=== PATIENT | male | born 1955 | race Caucasian/White ===

== ENCOUNTER 2019-03-12 17:31 | Emergency (ER) | payer OTHER ==
[2019-03-12 18:24] LABS: Absolute Lymphocytes (CBC) 1.5 K/uL (0.7-4.9); Basophils % 0.5 % (0-1.3); Hematocrit 42.9 % (39.6-49.0); MPV 7.4 fL (7.6-11.3); RBC Red Blood Cell Count 4.59 M/uL (4.33-5.43)
[2019-03-12 18:38] LABS: Bilirubin Direct 0.3 mg/dL (0-0.2); Bilirubin Total 2.5 mg/dL (0.2-1.0); Potassium 3.9 mmol/L (3.5-5.1); Protein, Total 7.4 g/dL (6.4-8.2)
[2019-03-12] MEDS ORDERED: NA CHLORIDE 0.9% 1,000 ML ONE (19:24)
--- NOTE | 2019-03-12 19:28 | RAD REPORT ---
EXAM DESCRIPTION: CTAbdomen Pelvis W Contrast - 03/12/2019 7:16 pm CLINICAL HISTORY: Abdominal pain. bloody diarrhea COMPARISON: <Comparisons> TECHNIQUE: Biphasic CT imaging of the abdomen and pelvis was performed with 100 ml non-ionic IV cont rast. All CT scans are performed using dose optimization technique as appropriate and may include automated exposure control or mA/KV adjustment according to patient size. FINDINGS: The lung bases are clear. The liver, spleen, pancreas, adrenal glands and kidneys are within normal limits. No bowel obstruction, free air, free fluid or abscess. Moderate inflammation is seen involving the de scending colon compatible with a moderate colitis. No pneumatosis. The appendix is normal. No eviden ce of significant lymphadenopathy. No suspicious bony findings. IMPRESSION: Moderate descending colon colitis. No pneumatosis.
[2019-03-12] MEDS ORDERED: metroNIDAZOLE 500 MG TABLET ONE (20:46)
[2019-03-12] MEDS ORDERED: CIPROFLOXACIN HCL 500 MG TAB ONE (20:47)
--- NOTE | 2019-03-12 20:47 | EDPHYS ---
Physician Documentation [facility] Name: Boris Bush Age: 63 yrs Sex: Male : 1955 Arrival Date: 03/12/2019 Time: 17:36 Bed 24 Private MD: ED Physician Mingo Ashley HPI: 03/12 18:10 This 63 yrs old Male presents to ER via Ambulatory with complaints of Rectal jmm Bleeding. 18:10 The patient presents to the emergency department with bleeding from the rectum/anus. jmm Onset: The symptoms/episode began/occurred acutely, this morning. Modifying factors: The symptoms are alleviated by nothing, The symptoms are aggravated by bowel movement. This is a 63 year old female with a history of hlp, htn that presents to the ED with complaints of diarrhea and bloody stools. Patient denies fever. Patient states eating pork the previous evening. Patient denies recent, travel, denies recent antibiotic use. . Historical: - Allergies: 17:47 No Known Allergies; hb - Home Meds: 17:47 pravastatin 20 mg Oral tab 1 tab once daily [Active]; hb - PMHx: 17:47 GERD; Hyperlipidemia; Hypertension; hb - PSHx: 17:47 right arm surg; TURP; back surg; left shoulder surg; hb - Immunization history:: Adult Immunizations up to date. - Social history:: Smoking status: Patient/guardian denies using tobacco. - Ebola Screening: : No symptoms or risks identified at this time. ROS: 18:10 Constitutional: Negative for fever, chills, and weight loss, Cardiovascular: Negative jmm for chest pain, palpitations, and edema, Respiratory: Negative for shortness of breath, cough, wheezing, and pleuritic chest pain. 18:10 Abdomen/GI: Positive for abdominal pain, diarrhea. 18:10 All other systems are negative. Exam: 18:10 Constitutional: This is a well developed, well nourished patient who is awake, alert, jmm and in no acute distress. Head/Face: atraumatic. Eyes: EOMI, no conjunctival erythema appreciated ENT: Moist Mucus Membranes Neck: Trachea midline, Supple Chest/axilla: Normal chest wall appearance and motion. Cardiovascular: Regular rate and rhythm. No edema appreciated Respiratory: Normal respirations, no respiratory distress appreciated 18:10 Back: Normal ROM Skin: General appearance color normal MS/ Extremity: Moves all extremities, no obvious deformities appreciated, no edema noted to the lower extremities Neuro: Awake and alert, normal gait Psych: Behavior is normal, Mood is normal, Patient is cooperative and pleasant 18:10 Abdomen/GI: Inspection: abdomen appears normal, Bowel sounds: normal, Palpation: abdomen is soft and non-tender. Vital Signs: 17:46 BP 147 / 85; Pulse 78; Resp 16; Temp 98.8; Pulse Ox 99% on R/A; Weight 72.57 kg; Height hb 5 ft. 9 in. (175.26 cm); Pain 8/10; 19:32 BP 167 / 86; Pulse 60; Resp 18; Pulse Ox 100% on R/A; mg2 20:33 BP 169 / 82; Pulse 65; Resp 18; Temp 98.8(O); Pulse Ox 100% on R/A; mg2 17:46 Body Mass Index 23.63 (72.57 kg, 175.26 cm) hb MDM: 18:10 Patient medically screened. [facility] 20:24 Data reviewed: vital signs. [facility] 20:45 Data reviewed: lab test result(s). Counseling: I had a detailed discussion with the [facility] patient and/or guardian regarding: the historical points, exam findings, and any diagnostic results supporting the discharge/admit diagnosis, lab results, radiology results, the need for outpatient follow up, to return to the emergency department if symptoms worsen or persist or if there are any questions or concerns that arise at home. ED course: Patient is alert and non toxic in appearance in the ED. I discussed with the patient the need to follow up with pcp. Patient is otherwise given strict return precautions. Patient understood and agrees with the plan of care. . 03/12 17:53 Order name: Basic Metabolic Panel; Complete Time: 18:43 mg2 03/12 17:53 Order name: CBC with Diff; Complete Time: 18:43 mg2 03/12 17:53 Order name: Creatinine for Radiology; Complete Time: 18:43 mg2 03/12 17:53 Order name: Hepatic Function; Complete Time: 18:43 mg2 03/12 17:53 Order name: Lipase; Complete Time: 18:43 mg2 03/12 17:54 Order name: TS; Complete Time: 19:48 mg2 03/12 17:53 Order name: IV Saline Lock; Complete Time: 18:06 [facility] 03/12 17:53 Order name: Labs collected and sent; Complete Time: 18:06 [facility] 03/12 18:21 Order name: Stool Culture [facility] 03/12 18:21 Order name: CT Abd/Pelvis - IV Contrast Only; Complete Time: 19:35 [facility] Administered Medications: 19:29 Drug: NS 0.9% 1000 ml Route: IV; Rate: 1 bolus; Site: left antecubital; mg2 21:17 Follow up: Response: No adverse reaction; IV Status: Completed infusion; IV Intake: mg2 1000ml 20:36 Drug: Cipro 500 mg Route: PO; mg2 21:17 Follow up: Response: No adverse reaction; Medication administered at discharge. mg2 20:36 Drug: Flagyl 500 mg Route: PO; mg2 21:17 Follow up: Response: No adverse reaction; Marked relief of symptoms mg2 Disposition: 03/12/19 20:46 Discharged to Home. Impression: Colitis. - Condition is Stable. - Discharge Instructions: Colitis. - Prescriptions for Bentyl 20 mg Oral Tablet - take 2 tablet by ORAL route every 6 hours As needed; 40 tablet. Flagyl 500 mg Oral Tablet - take 1 tablet by ORAL route every 6 hours for 10 days; 40 tablet. Cipro 500 mg Oral Tablet - take 1 tablet by ORAL route every 12 hours for 7 days; 20 tablet. - Medication Reconciliation Form, Thank You Letter, Antibiotic Education, Prescription Opioid Use form. - Follow up: Private Physician; When: 2 - 3 days; Reason: Recheck today's complaints, Continuance of care, Re-evaluation by your physician. Signatures: Dispatcher [employer] EDNC Khalif Johnson PA PA jmm Baxter, Heather, CAMERON RN Rasta Henderson RN RN mg2 Corrections: (The following items were deleted from the chart) 21:16 20:46 03/12/2019 20:46 Discharged to Home. Impression: Colitis. Condition is Stable. mg2 Forms are Medication Reconciliation Form, Thank You Letter, Antibiotic Education, Prescription Opioid Use. Follow up: Private Physician; When: 2 - 3 days; Reason: Recheck today's complaints, Continuance of care, Re-evaluation by your physician. sveta
--- NOTE | 2019-03-12 20:47 | ER ---
Nurse's Notes [facility] Name: Boris Bush Age: 63 yrs Sex: Male : 1955 Arrival Date: 03/12/2019 Time: 17:36 Bed 24 Private MD: Diagnosis: Colitis Presentation: 03/12 17:45 Presenting complaint: Abdominal pain and bright red bloody diarrhea since last night. hb Transition of care: patient was not received from another setting of care. Onset of symptoms was March 11, 2019. Risk Assessment: Do you want to hurt yourself or someone else? Patient reports no desire to harm self or others. Initial Sepsis Screen: Does the patient meet any 2 criteria? No. Patient's initial sepsis screen is negative. Does the patient have a suspected source of infection? No. Patient's initial sepsis screen is negative. Care prior to arrival: None. 17:45 Method Of Arrival: Ambulatory hb 17:45 Acuity: NANCY 3 hb Historical: - Allergies: 17:47 No Known Allergies; hb - Home Meds: 17:47 pravastatin 20 mg Oral tab 1 tab once daily [Active]; hb - PMHx: 17:47 GERD; Hyperlipidemia; Hypertension; hb - PSHx: 17:47 right arm surg; TURP; back surg; left shoulder surg; hb - Immunization history:: Adult Immunizations up to date. - Social history:: Smoking status: Patient/guardian denies using tobacco. - Ebola Screening: : No symptoms or risks identified at this time. Screenin:32 Abuse screen: Denies threats or abuse. Denies injuries from another. Nutritional mg2 screening: No deficits noted. Tuberculosis screening: No symptoms or risk factors identified. Fall Risk IV access (20 points). Assessment: 19:30 General: Appears in no apparent distress. comfortable, Behavior is calm, cooperative. mg2 Pain: Complains of pain in abdomen Pain does not radiate. Pain currently is 3 out of 10 on a pain scale. Quality of pain is described as crampy, Pain began gradually. Neuro: Level of Consciousness is awake, alert, obeys commands, Oriented to person, place, time, situation. Cardiovascular: Capillary refill < 3 seconds Patient's skin is warm and dry. Respiratory: Airway is patent Respiratory effort is even, unlabored, Respiratory pattern is regular, symmetrical. GI: Rectal exam: Bleeding noted. :. EENT: No signs and/or symptoms were reported regarding the EENT system. Derm: Skin is intact, is healthy with good turgor, Skin is pink, warm \T\ dry. normal. Musculoskeletal: Circulation, motion, and sensation intact. Capillary refill < 3 seconds. Vital Signs: 17:46 BP 147 / 85; Pulse 78; Resp 16; Temp 98.8; Pulse Ox 99% on R/A; Weight 72.57 kg; Height hb 5 ft. 9 in. (175.26 cm); Pain 8/10; 19:32 BP 167 / 86; Pulse 60; Resp 18; Pulse Ox 100% on R/A; mg2 20:33 BP 169 / 82; Pulse 65; Resp 18; Temp 98.8(O); Pulse Ox 100% on R/A; mg2 17:46 Body Mass Index 23.63 (72.57 kg, 175.26 cm) hb ED Course: 17:36 Patient arrived in ED. mr 17:46 Triage completed. hb 17:46 Arm band placed on. hb 17:53 Rasta Henderson, RN is Primary Nurse. mg2 18:07 Initial lab(s) drawn, by me, sent to lab. Inserted saline lock: 20 gauge in right ms antecubital area, using aseptic technique. Blood collected. 18:08 Khalif Johnson PA is PHCP. [facility] 18:08 Mingo Ashley MD is Attending Physician. [facility] 19:[address] via stretcher. 2 19:16 CT Abd/Pelvis - IV Contrast Only In Process Unspecified. EDMS 19:32 Patient has correct armband on for positive identification. Pulse ox on. NIBP on. Door mg2 closed. Warm blanket given. 21:16 No provider procedures requiring assistance completed. IV discontinued, intact, mg2 bleeding controlled, No redness/swelling at site. Pressure dressing applied. Administered Medications: 19:29 Drug: NS 0.9% 1000 ml Route: IV; Rate: 1 bolus; Site: left antecubital; mg2 21:17 Follow up: Response: No adverse reaction; IV Status: Completed infusion; IV Intake: mg2 1000ml 20:36 Drug: Cipro 500 mg Route: PO; mg2 21:17 Follow up: Response: No adverse reaction; Medication administered at discharge. mg2 20:36 Drug: Flagyl 500 mg Route: PO; mg2 21:17 Follow up: Response: No adverse reaction; Marked relief of symptoms mg2 Intake: 21:17 IV: 1000ml; Total: 1000ml. mg2 Outcome: 20:46 Discharge ordered by MD. [place] 21:16 Discharged to home ambulatory, with family. mg2 21:16 Condition: stable 21:16 Discharge instructions given to patient, family, Instructed on discharge instructions, follow up and referral plans. medication usage, Demonstrated understanding of instructions, follow-up care, medications, Prescriptions given X 3. 21:16 Patient left the ED. mg2 Signatures: Dispatcher [employer] EDMS Khalif Johnson PA PA jmm Rivera, Sydni mr Mcbride, Emerald ms Breanna Romero RN RN Rosa Thompson [facility] Rasta Henderson RN RN mg2
== END 2019-03-12 21:16 | disposition home or self-care (01) ==
LOC: ER 17:31
DX: K52.9 Noninfective gastroenteritis and colitis, unspecified (principal); K21.9 Gastro-esophageal reflux disease without esophagitis; E78.5 Hyperlipidemia, unspecified; I10 Essential (primary) hypertension
CPT/HCPCS: 87045; 85025; 80048; 36415; 86900; 86850; 86901; 80076; 87046; 83690; 74177; Q9967; J7030